=== PATIENT | female | born 1965 | race Caucasian/White ===

== ENCOUNTER 2016-08-23 07:34 | Emergency (ER) | payer OTHER ==
[~2016-08-23] VITALS: Wt 71.0 kg
[2016-08-23] MEDS ORDERED: PROCHLORPERAZINE 10 MG INJ IV STA (07:48)
[2016-08-23] MEDS ORDERED: DIPHENHYDRAMINE 50 MG INJ IV STA (07:48)
[2016-08-23] MEDS ORDERED: HYDROmorphONE 1 MG/ML SYG IV STA (07:48)
[2016-08-23] MEDS ORDERED: DICLOFENAC SODIUM 37.5 MG/ML VIAL IV STA (08:31)
--- NOTE | 2016-08-23 09:18 | RADRPT ---
PROCEDURE: CT Brain without contrast. CLINICAL INDICATION: Pain, headache TECHNIQUE: Routine CT scan of the brain was performed on a high resolution multi detector scanner without intravenous contrast. One or more of the following dose reduction techniques were used: Auto mated exposure control; Adjustment of the mA and/or kV according to patient size; Use of iterative r econstruction technique. CTDI = 43 mGy. DLP = 630 mGy-cm. COMPARISON: No prior relevant examinations are available for comparison. FINDINGS: Hemorrhage: No evidence of intracranial hemorrhage. Acute ischemic changes: No evidence of acute ischemic changes. Mass effect/Midline shift: None. Parenchymal volume: Within normal limits for age. Ventricular system: Concordant with parenchymal volume. Chronic changes: Parenchymal attenuation is within normal limits. Extracranial soft tissues: Unremarkable. Calvarium: No fractures. Paranasal sinuses: Visualized paranasal sinuses are clear. Mastoid air cells: Visualized mastoid air cells are clear. IMPRESSION: No acute intracranial abnormalities. Normal appearance the brain parenchyma. RPTAT: AADD .Cayden Mark MD, MD Date Time Electronically viewed and signed by .Cayden Mark MD, on 08/23/2016 09:18 .B/
[2016-08-23] MEDS ORDERED: HYDR-902 PO (10:18)
[2016-08-23] MEDS ORDERED: IBUP800T25 PO (10:19)
--- NOTE | 2016-08-23 10:22 | ERD ---
ER Documentation Chief Complaint Date/Time DATE: 08/23/16 TIME: 10:20 Chief Complaint headache and vomiting since yesterday. no neuro def HPI This is a 51-year-old female complains of headache for 2 days. Headaches located in the frontal region and occipital region described as constant. The patient states that she had one episode of nausea vomiting yesterday. She says the headache is worse with loud noise and movement. No photophobia no fever no stiff neck no focal neurological complaints of speech change numbness or weakness. No headache history. No blurry vision. No uncontrolled hypertension. She says the headache will go away with Advil then returns later. ROS All systems reviewed and are negative except as per history of present illness. Medications Home Meds Active Scripts Ibuprofen* (Motrin*) 800 Mg Tab, 800 MG PO Q6H Y for PAIN AND OR ELEVATED TEMP, #30 TAB Prov:SANGITA ALCALA DO 08/23/16 Hydrocodone/Acetaminophen (Drifton 10-325 Tablet) 1 Each Tablet, 1 TAB PO Q6H Y for PAIN, #20 TAB Prov:SANGITA ALCALA DO 08/23/16 FmHx Family History: No coronary disease Physical Exam Vitals Vital Signs Date Time Temp Pulse Resp B/P Pulse Ox O2 Delivery O2 Flow Rate FiO2 08/23/16 07:35 98.6 91 18 154/77 97 Physical Exam Const: Well-developed, well-nourished Head: Atraumatic, normocephalic Eyes: Normal Conjunctiva, PERRLA, EOMI, normal sclera, no nystagmus ENT: Normal External Ears, Nose and Mouth, moist mucus membranes. Neck: Full range of motion. No meningismus, no lymphadenopathy. Resp: Clear to auscultation bilaterally, no wheezing, rhonchi, rales Cardio: Regular rate and rhythm, no murmurs, S1 S2 present Abd: Soft, non tender x 4, non distended. Normal bowel sounds, no guarding or rebound, no pulsitile abdominal masses or bruits Skin: No petechiae or rashes, no ecchymosis , no maculopapular rash Back: No midline or flank tenderness Ext: No cyanosis, or edema, FROM x 4, normal inspection, neurovascularly intact x 4 Neur: Awake and alert, STR 5/5 x 4, sensation intact x 4, no focal findings, cerebellum intact Psych: Normal Mood and Affect Results 24 hrs Current Medications Medications (Trade) Dose Ordered Sig/Vidya Route PRN Reason Start Time Stop Time Status Last Admin Dose Admin Prochlorperazine (Compazine Inj) 10 mg ONCE STAT IV 08/23/16 07:48 08/23/16 07:50 DC 08/23/16 08:46 Hydromorphone HCl (Dilaudid) 1 mg ONCE STAT IV 08/23/16 07:48 08/23/16 07:50 DC Diphenhydramine HCl (Benadryl) 25 mg ONCE STAT IV 08/23/16 07:48 08/23/16 07:50 DC 08/23/16 08:46 Diclofenac Sodium (Dyloject) 37.5 mg ONCE STAT IV 08/23/16 08:31 08/23/16 08:32 DC 08/23/16 08:46 Procedures/MDM PROCEDURE: CT Brain without contrast. CLINICAL INDICATION: Pain, headache TECHNIQUE: Routine CT scan of the brain was performed on a high resolution multi detector scanner without intravenous contrast. One or more of the following dose reduction techniques were used: Automated exposure control; Adjustment of the mA and/or kV according to patient size; Use of iterative reconstruction technique. CTDI = 43 mGy. DLP = 630 mGy-cm. COMPARISON: No prior relevant examinations are available for comparison. FINDINGS: Hemorrhage: No evidence of intracranial hemorrhage. Acute ischemic changes: No evidence of acute ischemic changes. Mass effect/Midline shift: None. Parenchymal volume: Within normal limits for age. Ventricular system: Concordant with parenchymal volume. Chronic changes: Parenchymal attenuation is within normal limits. Extracranial soft tissues: Unremarkable. Calvarium: No fractures. Paranasal sinuses: Visualized paranasal sinuses are clear. Mastoid air cells: Visualized mastoid air cells are clear. IMPRESSION: No acute intracranial abnormalities. Normal appearance the brain parenchyma. RPTAT: AADD .Cayden Mark MD, Date Time Electronically viewed and signed by .Cayden Mark MD, on 08/23/2016 09:18 .B/ CC: SANGITA ALCALA DO After medications given the patient says that her headache is completely resolved. Patient likely has an unspecific headache or migraine variant. No evidence of intracranial hemorrhage or lesion Departure Diagnosis: Primary Impression: Headache Headache type: unspecified Headache chronicity pattern: unspecified pattern Intractability: not intractable Qualified Code: R51 - Nonintractable headache, unspecified chronicity pattern, unspecified headache type Condition: Stable Patient Instructions: Self-Care for Headaches Referrals: NO PRIMARY,CARE PHYSICIAN (PCP) SANGITA ALCALA DO Aug 23, 2016 10:21
== END 2016-08-23 11:00 | disposition home or self-care (01) ==
LOC: FTE 07:34
DX: R51 Headache (principal)
CPT/HCPCS: 70450; 96374; 96375; 99285; J1200